=== PATIENT | female | born 1960 | race Caucasian/White ===

== ENCOUNTER 2017-06-16 19:46 | Emergency (ER) | payer BC ==
--- NOTE | 2017-06-16 21:41 | Emergency Department Record ---
History of Present Illness - General Chief Complaint: General Stated Complaint: CONSTIPATION Time Seen by Provider: 06/16/17 21:25 Source: Patient Mode of Arrival: Ambulatory Limitations: No limitations - History of Present Illness Initial comments: pt has been having problems with constipation since may 30 when she stopped met formin. she has infrequent hard stools. she has taken miralax the last 2days and has tried a fleets enema with small results. she states she has a skin tag and an external hernia. -: Week(s) Consistency: Intermittent - Related Data Home Medications Medication Instructions Recorded Confirmed Last Taken Glipizide [Glipizide ER] 2.5 mg PO DAILY 06/16/17 06/16/17 Unknown Previous Rx's Medication Instructions Recorded Docusate Sodium [Colace] 100 mg PO QHS #20 cap 06/16/17 Allergies Allergy/AdvReac Type Severity Reaction Status Date / Time metoclopramide HCl Allergy Intermediate ALTERED Verified 06/16/17 21:10 [From [facility]] MENTAL STATUS Travel Screening - Travel/Exposure Within Last 30 Days Have you traveled within the last 30 days?: No - Travel Symptoms Symptom Screening: None Review of Systems Reviewed: No additional complaints except as noted below Constitutional: Reports: As per HPI. Denies: Chills, Fever, Malaise, Night sweats, Weakness, Weight change Eyes: Reports: As per HPI. Denies: Eye discharge, Eye pain, Photophobia, Vision change ENT: Reports: As per HPI. Denies: Congestion, Dental pain, Ear pain, Epistaxis , Hearing loss, Throat pain Respiratory: Reports: As per HPI. Denies: Cough, Dyspnea, Hemoptysis, Stridor, Wheezes Cardiovascular: Reports: As per HPI. Denies: Arrhythmia, Chest pain, Dyspnea on exertion, Edema, Murmurs, Orthopnea, Palpitations, Paroxysmal nocturnal dyspnea, Rheumatic Fever, Syncope Endocrine: Reports: As per HPI. Denies: Fatigue, Heat or cold intolerance, Polydipsia, Polyuria Gastrointestinal: Reports: As per HPI, Constipation. Denies: Abdominal pain, Diarrhea, Hematemesis, Hematochezia, Melena, Nausea, Vomiting Genitourinary: Reports: As per HPI. Denies: Abnormal menses, Discharge, Dyspareunia, Dysuria, Frequency, Hematuria, Incontinence, Retention, Urgency Musculoskeletal: Reports: As per HPI. Denies: Arthralgia, Back pain, Gout, Joint swelling, Myalgia, Neck pain Skin: Reports: As per HPI. Denies: Bruising, Change in color, Change in hair/ nails, Lesions, Pruritus, Rash Neurological: Reports: As per HPI. Denies: Abnormal gait, Confusion, Headache, Numbness, Paresthesias, Seizure, Tingling, Tremors, Vertigo, Weakness Psychiatric: Reports: As per HPI. Denies: Anxiety, Auditory hallucinations, Depression, Homicidal thoughts, Suicidal thoughts, Visual hallucinations Hematological/Lymphatic: Reports: As per HPI. Denies: Anemia, Blood Clots, Easy bleeding, Easy bruising, Swollen glands Past Medical History - SOCIAL HISTORY Smoking Status: Never smoker - RESPIRATORY Hx Respiratory Disorders: Yes Hx Sleep Apnea: Yes Hx of CPAP: Yes - CARDIOVASCULAR Hx Cardio Disorders: Yes Hx Edema: Yes (OCCASIONALLY) Hx Hypertension: Yes (CONTROLLED) - NEURO Hx Neuro Disorders: No - GI Hx GI Disorders: Yes Hx Diverticulitis: Yes (X2 IN LAST 6 MONTHS) - Hx Genitourinary Disorders: Yes Hx UTI: Yes (RECENTLY FINISHED ABX 09/23) - ENDOCRINE Hx Endocrine Disorders: Yes Comment:: OCC CHECKS BLOOD SUGARS RECENT HGBA1C 6.9 - MUSCULOSKELETAL Hx Musculoskeletal Disorders: Yes - PSYCH Hx Psych Problems: Yes Hx Depression: Yes (CONTROLLED WITH MEDS) - HEMATOLOGY/ONCOLOGY Hx Hematology/Oncology Disorders: No Family Medical History Any Significant Family History?: Yes Family Hx Comment (NOT TO BE USED IN PLACE OF ITEMS BELOW): brother-crohns Hx Heart Disease: Father Physical Exam - General General Appearance: Alert, Oriented x3, Cooperative, Mild distress - Head Head exam: Normal inspection - Eye Eye exam: Normal appearance, PERRL, EOMI Pupils: Normal accommodation - ENT ENT exam: Normal exam, Mucous membranes moist, Normal external ear exam, Normal orophraynx, TM's normal bilaterally Ear exam: Normal external inspection. negative: External canal tenderness Nasal Exam: Normal inspection. negative: Discharge, Sinus tenderness Mouth exam: Normal external inspection, Tongue normal Teeth exam: Normal inspection. negative: Dental caries Throat exam: Normal inspection. negative: Tonsillar erythema, Tonsillar exudate - Neck Neck exam: Normal inspection, Full ROM. negative: Tenderness - Respiratory Respiratory exam: Normal lung sounds bilaterally. negative: Respiratory distress - Cardiovascular Cardiovascular Exam: Regular rate, Normal rhythm, Normal heart sounds - GI/Abdominal GI/Abdominal exam: Soft, Normal bowel sounds. negative: Tenderness - Rectal Rectal exam: Heme (-) stool, Hemorrhoids, Other (skin tag, soft stool in vault) - exam: Deferred - Extremities Extremities exam: Normal inspection, Full ROM, Normal capillary refill. negative: Tenderness - Back Back exam: Reports: Normal inspection, Full ROM. Denies: Muscle spasm, Rash noted, Tenderness - Neurological Neurological exam: Alert, Normal gait, Oriented X3, Reflexes normal - Psychiatric Psychiatric exam: Normal affect, Normal mood - Skin Skin exam: Dry, Intact, Normal color, Warm Course Vital Signs 06/16/17 06/16/17 21:06 21:12 Temperature 98.3 F 98.3 F Pulse Rate [ 75 Pulse Ox Probe] Respiratory 16 Rate Blood Pressure 149/78 [Left Arm] Pulse Ox 96 - Reevaluation(s) Reevaluation #1: 06/16/17 22:59 pt feels much better, had several bms Disposition Disposition: Discharge Clinical Impression: Constipation by delayed colonic transit Disposition: Home, Self-Care Condition: (1) Good Instructions: Constipation (ED) Additional Instructions: follow up with family doctor. return sooner if worse. Prescriptions: Docusate Sodium [Colace] 100 mg PO QHS #20 cap Forms: Patient Portal Access Quality - Quality Measures Quality Measures: N/A - Blood Pressure Screening Does Patient Have Any of the Following: No Blood Pressure Classification: Hypertensive Reading Systolic Measurement: 149 Diastolic Measurement: 78 Screening for High Blood Pressure: < First Hypertensive BP, F/U Documented > [ [id number]] First Hypertensive Follow-up Interventions: Follow-up with rescreen GT 1 day and LT 4 weeks.
== END 2017-06-16 23:17 | disposition home or self-care (01) ==
LOC: ER 19:46
DX: K59.01 Slow transit constipation (principal)
CPT/HCPCS: 99282

== ENCOUNTER 2018-09-19 07:04 | Day surgery (SDC) | payer BC ==
[~2018-09-19 07:04] MED LIST: CEFAZOLIN 2 Gram 2 GM/50 ML BAG IVPB ONE; FAMOTIDINE 20MG TABLET PO ONE; MECLIZINE 25 MG TABLET PO ONE
[2018-09-19] MEDS ORDERED: DEXAMETHASONE 4 MG/ML 1ML VIAL IVP ONE (07:05)
[2018-09-19] MEDS ORDERED: LIDOCAINE 2% MDV (20MG/ML) 20ML VIAL IV ONE (07:05)
[2018-09-19] MEDS ORDERED: MIDAZOLAM HCL 2MG/2ML VIAL IV ONE (07:05)
[2018-09-19] MEDS ORDERED: ROPIVACAINE HCL (NAROPIN) /PF 5MG/ML 20ML VIAL IV ONE (07:05)
[2018-09-19] MEDS ORDERED: TRANEXAMIC ACID 1,000 MG/10 ML ML IV ONE (07:05)
[2018-09-19] MEDS ORDERED: PROPOFOL 10 MG/ML VIAL IV ONE (07:05)
[2018-09-19] MEDS ORDERED: RINGERS SOLUTION,LACTATED 1,000 ML IV ONE ×2 (07:30→09:12)
[2018-09-19] MEDS ORDERED: NALOXONE 0.4 MG/1 ML VIAL IVP PRN (10:45)
[2018-09-19] MEDS ORDERED: HYDROCODONE/APAP 5/325MG TABLET PO PRN (10:45)
[2018-09-19] MEDS ORDERED: RINGERS SOLUTION,LACTATED 1,000 ML IV SCH (10:45)
[2018-09-19] MEDS ORDERED: ACETAMINOPHEN 325 MG TAB PO PRN (10:45)
[2018-09-19] MEDS ORDERED: ZOLPIDEM TARTRATE 5 MG TABLET PO PRN (10:45)
[2018-09-19] MEDS ORDERED: OXYCODONE HCL/APAP 5MG/325MG TABLET PO PRN ×2 (10:45)
[2018-09-19] MEDS ORDERED: MAGNESIUM HYDROXIDE 30 ML UDC PO PRN (10:45)
[2018-09-19] MEDS ORDERED: AL HYDROX/MAG HYDROX 30ML UD PO PRN (10:45)
[2018-09-19] MEDS ORDERED: TRAMADOL HCL 50 MG TABLET PO PRN (10:45)
[2018-09-19] MEDS ORDERED: DIPHENHYDRAMINE HCL 25 MG CAPSULE PO PRN (10:45)
[2018-09-19] MEDS ORDERED: SENNOSIDES/DOCUSATE SODIUM UD CAPSULE PO PRN (10:45)
[2018-09-19] MEDS: HYDROCODONE/APAP 5/325MG TABLET PO PRN ×2 (12:57→20:17)
[2018-09-19] MEDS ORDERED: TRANEXAMIC ACID 1,000 MG in 0.9 % SODIUM CHLORIDE 100ML 100 ML IVPB ONE (13:00)
[2018-09-19] MEDS: HYDROMORPHONE HCL 2 MG/ML VIAL IV PRN ×2 (13:42→15:59)
[2018-09-19] MEDS: ONDANSETRON HCL IV 4 MG/2 ML VIAL IVP PRN (13:45)
[2018-09-19] MEDS ORDERED: CEFAZOLIN 2 Gram 2 GM/50 ML BAG IVPB SCH (16:30)
[2018-09-19] MEDS: CEFAZOLIN 1G VIAL IVP SCH (16:56)
--- NOTE | 2018-09-19 17:16 | Rehab Evaluation ---
Patient Information - Patient Information Diagnosis: R knee OA Ordered Treatment: PT Evaluate and Treat Status: Initial Evaluation Surgery: Yes (R TKA) Date of Surgery: 09/19/18 Past Medical/Surgical Hx: PAST MEDICAL/SURGICAL HISTORY Past Surgical History CHOLECYSTECTOMY HYSTERECTOMY GONZALO. CTR X2 BACK SX FUSION C-SCOPE; R shoulder-rotator cuff repair ; R knee scope ; Lap band 7 yrs ago then removed. PMH - Respiratory Hx Respiratory Disorders Yes Hx Sleep Apnea Yes Hx of CPAP Yes PMH - Cardiovascular Hx Cardiovascular Disorders Yes Hx Edema Yes: OCCASIONALLY Hx Hypertension Yes: CONTROLLED Exercise Tolerance Fair Comment: HYPERLIPIDEMIA. PMH - Neuro Hx Neurological Disorders No PMH - GI Hx Gastrointestinal Disorders Yes Hx Diverticulitis Yes: X2 IN LAST 6 MONTHS Hx Gastroesophageal Reflux Yes Hx Irritable Bowel Yes PMH - Hx Genitourinary Disorders Yes Hx Age of Menopause 44 Hx Urinary Tract Infection Yes: RECENTLY FINISHED ABX 09/23 Comment: S/P HYST PMH - Endocrine Hx Endocrine Disorders Yes Hx Diabetes Yes: DX'D 12 YRS AGO Hx of NIDDM Yes Comment: OCC CHECKS BLOOD SUGARS RECENT HGBA1C 6.9 PMH - Musculoskeletal Hx Musculoskeletal Disorders Yes Hx Arthritis Yes Hx Back Injury No Comment: RIGHT ROTATOR CUFF TEAR PMH - Psych Hx Psychiatric Problems Yes Hx Depression Yes: CONTROLLED WITH MEDS Hx Suicide Attempt No Major Depressive Episode No PMH - Hematology/Oncology Hx Hematology/Oncology No Disorders Premorbid Status: Detail (The patient was independent with all mobility prior to surgery.) Social History: Detail (The patient lives with spouse in a 2 story house but will be staying on main floor. The patient has a main floor enterance without steps. The bathroom has a tub/shower combination wan a standard height toilet, no grab bars are present. The patient has a walker with wheels and a standard cane.) Precautions: [place], Fall, Other (WBAT on the R LE.) - Time With Patient Total Time Spent With Patient (Min): 30 Treatment Procedures: Detail (Initial Evaluation) Subjective Information - Subjective Information Per Patient (The patient had complaints of lower back pain, initially level 8 to 9, minimal complaints of R knee pain. Patient also had complaints of lightheadedness when standing.) Objective Data - Mental Status Patient Orientation: Oriented x3 - Visual Perception Appears within normal limits for therapeutic activities - ROM Not within normal limits (The patient's R knee pain was limited as to be expected following surgery. All other LE AROM was WFL.) - Strength/Tone Not within normal limits (The patient's R LE strength was not tested s/p surgery , however was functional ie: patient was able to lift LE out of bed. The patient 's L LE strength was WFL.) - Bed Mobility Independent (The patient was independent with supine to and from sit and scooting up in bed.) - Transfers Independent (The patient was independent with sit to stand with verbal cues to push up from surface.) - Balance Balance Sitting: Good Balance Standing: Good - Gait Detail (The patient became lightheaded with standing and requested to sit back down. The patient stood x 1 min WBAT on the R LE. The patient did not ambulate.) Therapy Assessment - Therapy Assessment Detail (The patient was independent with bed mobility and transfers. The patient was unable to ambulate due to lightheadedness. Feel the patient will progress well once symptoms of lightheadedness decrease.) Problem List - Problem List Physical Therapy Problem List: Detail (1) Decreased R knee AROM and strength as to be expected s/p surgery) Goals - Goals Physical Therapy Goals: 1) The patient will ambulate with appropriate assistive device community distances WBAT on the R LE. 2) The patient will ambulate on stairs using proper technique with supervision for safety. 3) The patient will be independent with TKA HEP.
[2018-09-19] MEDS ORDERED: SIMVASTATIN 20 MG TABLET PO SCH (22:00)
[2018-09-19] MEDS: ASPIRIN 325 MG TAB ENTERIC-COATED PO SCH (23:14)
[2018-09-19] MEDS: GLIPIZIDE 5 MG TABLET PO SCH (23:14)
[2018-09-19] MEDS: PANTOPRAZOLE SODIUM 40 MG TABLET PO SCH (23:16)
[2018-09-20] MEDS: CEFAZOLIN 1G VIAL IVP SCH ×2 (00:56→10:37)
[2018-09-20] MEDS: ONDANSETRON HCL IV 4 MG/2 ML VIAL IVP PRN (01:50)
--- NOTE | 2018-09-20 08:41 | Operative Note ---
DATE OF SURGERY: 09/19/2018 SURGEON: Kofi Cruz DO PREOPERATIVE DIAGNOSIS: Osteoarthritis of the right knee. POSTOPERATIVE DIAGNOSIS: Osteoarthritis of the right knee. OPERATION: Right total knee arthroplasty. DESCRIPTION OF PROCEDURE: This 58-year-old female was taken to the operating room and placed in the supine position on the operating room table after spinal anesthesia had been induced. The right lower extremity was elevated. It was prepped with Hibiclens and draped in the usual sterile fashion. It was exsanguinated and the tourniquet inflated to 300 mmHg. All scrub personnel wore personal isolation suits. An anterior longitudinal midline incision was made followed by a medial parapatellar arthrotomy incision. An intracondylar drill hole was made for the intramedullary alignment annabel, and a 5-degree valgus 9 mm cut was made in the distal femur. The wafers of bone were removed. Sizing jig was affixed and size 65 was seen to be the appropriate size. The 4-in-1 cutting block was then pinned in 3 degrees of external rotation. The appropriate cuts were made. We then directed our attention to the proximal tibia, and an extramedullary alignment guide was used to cut the proximal tibia referencing a 10 mm cut off the lateral tibial plateau. After the appropriate alignment had been assured, a 3-degree posterior slope cut was made on the proximal tibia, and the wafer of bone was removed. Remnants of the menisci were removed. Osteophytes were removed from the posterior aspect of the joint. The tibia was sized to a 71 and the stem punch was used. The patella was cut and restored to anatomic height with a 34 x 7.8 mm patella. Trial components were inserted and a 10 mm bearing was seen to be the appropriate size giving us full extension and excellent stability throughout the full range of motion. All trial components were removed and the wound copiously irrigated with pulse lavage, lactated Ringer's solution. All bony surfaces were dried, and all components cemented and excess cement removed after the insertion of each component. Initially the tibial baseplate was cemented followed by the insertion of the tibial bearing, femoral component, and finally the patella. Once the cement had hardened, the knee was taken through range of motion with excellent stability being noted. A drain was placed through a separate stab incision, and the wound copiously irrigated again with lactated Ringer's solution and suctioned. The arthrotomy incision closed with a #2 Vicryl. The subcutaneous tissue was closed with 0 Vicryl and the skin was stapled. Sterile dressings applied. The patient was taken to the recovery room in satisfactory condition. GROSS PATHOLOGY: This patient had severe full-thickness articular cartilage loss noted in the medial compartment and more mild degenerative changes laterally, grade 3 changes noted at the patellofemoral joint. Final components inserted were a [employer] size 65 cruciate retaining femur, a 71 tibial baseplate, a 10 mm anterior stabilized E1 bearing, and a 34 x 7.8 mm patella was used. The patient did have considerable amount of oozing during the operative procedure. We attempted to control this using electrocautery but this was slightly more than usual. CC: Vivi MAR
[2018-09-20] MEDS ORDERED: LISINOPRIL 20 MG TABLET PO SCH (10:00)
[2018-09-20] MEDS ORDERED: FLUOXETINE HCL 20 MG CAPSULE PO SCH (10:00)
[2018-09-20] MEDS ORDERED: BUPROPION HCL 150 MG TAB.SR.12H PO SCH (10:00)
[2018-09-20] MEDS: PANTOPRAZOLE SODIUM 40 MG TABLET PO SCH (10:32)
[2018-09-20] MEDS: GLIPIZIDE 5 MG TABLET PO SCH (10:33)
[2018-09-20] MEDS: ASPIRIN 325 MG TAB ENTERIC-COATED PO SCH (10:33)
[2018-09-20] MEDS: TRAMADOL HCL 50 MG TABLET PO PRN ×2 (10:55→11:28)
--- NOTE | 2018-09-20 11:30 | Rehab Evaluation ---
Patient Information - Patient Information Diagnosis: R knee OA Ordered Treatment: OT Evaluate and Treat Status: Initial Evaluation Surgery: Yes (R TKA) Date of Surgery: 09/19/18 Past Medical/Surgical Hx: PAST MEDICAL/SURGICAL HISTORY Past Surgical History CHOLECYSTECTOMY HYSTERECTOMY GONZALO. CTR X2 BACK SX FUSION C-SCOPE; R shoulder-rotator cuff repair ; R knee scope ; Lap band 7 yrs ago then removed. PMH - Respiratory Hx Respiratory Disorders Yes Hx Sleep Apnea Yes Hx of CPAP Yes PMH - Cardiovascular Hx Cardiovascular Disorders Yes Hx Edema Yes: OCCASIONALLY Hx Hypertension Yes: CONTROLLED Exercise Tolerance Fair Comment: HYPERLIPIDEMIA. PMH - Neuro Hx Neurological Disorders No PMH - GI Hx Gastrointestinal Disorders Yes Hx Diverticulitis Yes: X2 IN LAST 6 MONTHS Hx Gastroesophageal Reflux Yes Hx Irritable Bowel Yes PMH - Hx Genitourinary Disorders Yes Hx Age of Menopause 44 Hx Urinary Tract Infection Yes: RECENTLY FINISHED ABX 09/23 Comment: S/P HYST PMH - Endocrine Hx Endocrine Disorders Yes Hx Diabetes Yes: DX'D 12 YRS AGO Hx of NIDDM Yes Comment: OCC CHECKS BLOOD SUGARS RECENT HGBA1C 6.9 PMH - Musculoskeletal Hx Musculoskeletal Disorders Yes Hx Arthritis Yes Hx Back Injury No Comment: RIGHT ROTATOR CUFF TEAR PMH - Psych Hx Psychiatric Problems Yes Hx Depression Yes: CONTROLLED WITH MEDS Hx Suicide Attempt No Major Depressive Episode No PMH - Hematology/Oncology Hx Hematology/Oncology No Disorders Premorbid Status: Detail (The patient was independent with all ADLs and mobility prior to surgery.) Social History: Detail (The Pt lives with her spouse in a bilevel home with no steps inside or outside to negotiate upon DC. In the bathroom there is a tub/ shower without grab bars or shower chair. There is a std. toilet without GBs. Spouse assists with all IADLs at baseline. She has a walker and a single-point cane.) Precautions: [place], Fall, Other (WBAT on the R LE.) - Time With Patient Total Time Spent With Patient (Min): 25 (1 eval low) Treatment Procedures: Detail (ot eval: low complexity) Subjective Information - Subjective Information Per Patient (ok to see per SANTINO Dorsey. Pt agreeable to OT eval, spouse present.) Objective Data - Pain Pain Present: Yes - Mental Status Patient Orientation: Oriented x3 - Visual Perception Appears within normal limits for therapeutic activities - ROM Within normal limits (Pt reports previous R rotator cuff injury, however ROM WFL.) - Strength/Tone Within normal limits - Coordination Appears within normal limits for therapeutic activities - Bed Mobility Independent (supine >< EOB) - Transfers Independent (sit >< stand from low surfaces) - Balance Balance Sitting: Good Balance Standing: Good - Sensation Intact - Gait Detail (Functional ambulation within bedroom with FWW and supervision. Slight lightheadedness verbalized, but Pt self-aware of safety and feels safe for fxl amb. within room.) - ADL's/IADL's Detail (OT educ. Pt on adaptive tech and Pt demos ability to don/doff LB dress ( pants, socks, shoes) with increased time (MOD I) and mod tech. OT educ. Pt on mod techs. for kitchen and bathroom safety, incl. using shower chair initially upon DC for increased safety.) Therapy Assessment - Therapy Assessment Detail (Pt demos safety and MOD I with LB dressing and verbalizes safe tech for home tasks. Rec. shower chair and installing GB in shower. Rec DC home with spouse upon medical stability.) Problem List - Problem List Physical Therapy Problem List: Detail (1) Decreased R knee AROM and strength as to be expected s/p surgery) Occupational Therapy Problem List: Detail (No further inpatient OT needs identified.) Goals - Goals Physical Therapy Goals: 1) The patient will ambulate with appropriate assistive device community distances WBAT on the R LE. 2) The patient will ambulate on stairs using proper technique with supervision for safety. 3) The patient will be independent with TKA HEP. Occupational Therapy Goals: No further inpatient OT needs identified. DC inpatient OT when medically ready. Prognosis - Prognosis Good Plan - Plan Occupational Therapy Plan: No further inpatient OT needs identified. DC inpatient OT when medically appropriate. Thank you for this referral.
--- NOTE | 2018-09-20 14:41 | Physical Therapy Tx Note ---
Physical Therapy Tx Note - Treatment Note Tolerated: Good Total Time Spent With Patient: 25 Physical Therapy Tx Note: Detail (The patient was in bed when PT arrived and had no complaints of lightheadedness. The patient ambulated with front wheeled walker a distance of 75 feet x 1 WBAT on the R LE independently. The patient completed the following TKA exercises including: Heel slides supine, SLR with use of strap, gluteal sets, quad sets, hamstring sets and ankle pumps. Will see patient this pm for gait on stairs.) Physical Therapy Problem List: Detail (1) Decreased R knee AROM and strength as to be expected s/p surgery) Physical Therapy Goals: 1) The patient will ambulate with appropriate assistive device community distances WBAT on the R LE. 2) The patient will ambulate on stairs using proper technique with supervision for safety. 3) The patient will be independent with TKA HEP.
--- NOTE | 2018-09-20 14:45 | Physical Therapy Tx Note ---
Physical Therapy Tx Note - Treatment Note Tolerated: Good Total Time Spent With Patient: 15 Physical Therapy Tx Note: Detail (The patient denied complaints of pain or lightheadedness. The patient ambulated to stairway (80 feet x 2) with front wheeled walker independently. The patient ambulated on stairs with use of railing and folded walker with supervision for safety only. The patient has met all inpatient PT goals and is discharged from inpatient PT.) Physical Therapy Problem List: Detail (1) Decreased R knee AROM and strength as to be expected s/p surgery) Physical Therapy Goals: 1) The patient will ambulate with appropriate assistive device community distances WBAT on the R LE. ( Goal Met). 2) The patient will ambulate on stairs using proper technique with supervision for safety. (Goal Met ). 3) The patient will be independent with TKA HEP.(Goal Met). Physical Therapy Plan: The patient has met all PT goals and is discharged from PT.
--- NOTE | 2018-09-21 09:11 | Discharge Summary ---
DATE OF ADMISSION: 09/19/2018 DATE OF DISCHARGE: 09/20/2018 SURGEON: Kofi Cruz D.O. ADMITTING DIAGNOSIS: Osteoarthritis of the right knee. DISCHARGE DIAGNOSIS: Osteoarthritis of the right knee. OPERATIVE PROCEDURE: Right total knee arthroplasty. HISTORY OF PRESENT ILLNESS: This 58-year-old female was admitted to the hospital for elective total knee arthroplasty. The patient progressed satisfactorily with physical therapy. 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 She is doing well now. She feels as though she just had not eaten and had taken some [place]. Currently, she is not complaining of dizziness and she has walked with physical therapy and has cleared PT. She will be discharged today. She was instructed to wear her TREE hose during the day and remove them at night. She will take aspirin 325 mg daily. She was given a prescription for Tylenol 3, #40 1 every 4 hours as necessary for pain and Ultram 1 to 2 q.6 hours #60. She will also take that on a p.r.n. basis. Routine wound care instructions were given. She will follow up in 2 weeks and have outpatient PT. Should she have any problems prior to being seen, she was instructed to call my office. ANNIE
== END 2018-09-20 14:49 | disposition home or self-care (01) ==
LOC: SUR 07:04 → MEDSURG 10:51 → SUR 09-20 14:49
PROVIDERS: ATTEND Orthopaedic Surgery
DX: M17.11 Unilateral primary osteoarthritis, right knee (principal); I10 Essential (primary) hypertension; E78.00 Pure hypercholesterolemia, unspecified; E11.9 Type 2 diabetes mellitus without complications; G47.33 Obstructive sleep apnea (adult) (pediatric)
CPT/HCPCS: 76942; 94760; 97110; 97530; J0690; J2405; J3490; J7120

== ENCOUNTER 2018-09-25 18:27 | Emergency (ER) | payer BC | END 2018-09-25 19:19 | disposition left against medical advice (07) | LOC: ER 18:27 | DX: Z53.20 Procedure and treatment not carried out because of patient's decision for unspecified reasons (principal) ==

== ENCOUNTER 2018-11-15 06:31 | Emergency (ER) | payer BC ==
--- NOTE | 2018-11-15 07:08 | Emergency Department Record ---
History of Present Illness - General Chief complaint: Lower Extremity Pain Stated complaint: RIGHT LEG MUSCEL SPASMS Time Seen by Provider: 11/15/18 06:57 Source: Patient, RN notes reviewed Mode of Arrival: Ambulatory - History of Present Illness Initial comments: patient is having right thigh pain muscle spasm pain on the anterior thigh and some in the lower leg and she had a knee replacement August by Dr. Cruz and unable to sleep for the last 2 days. 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 Moving around is better than when sitting still. Last visit with Dr Cruz October. Last physical therapy this week. She is doing stretches to help the muscle spasms. Onset/Timin -: Week(s) Location: Right History of Same: No Radiation: Distal Severity scale (1-10): 8 Quality: Aching, Other Consistency: Intermittent, Getting worse Improves with: Movement Worsens with: Rest Associated Symptoms: Denies other symptoms - Related Data Home Medications Medication Instructions Recorded Confirmed Last Taken Pravastatin Sodium [Pravachol] 80 mg PO QHS 11/15/18 11/15/18 11/14/18 Tramadol HCl 50 mg PO DAILY 11/15/18 11/15/18 11/14/18 Previous Rx's Medication Instructions Recorded Tizanidine HCl [Zanaflex] 4 mg PO Q8HR PRN #14 tablet 11/15/18 Allergies Allergy/AdvReac Type Severity Reaction Status Date / Time metoclopramide HCl Allergy Intermediate ALTERED Verified 06/16/17 21:10 [From [facility]] MENTAL STATUS Travel Screening - Travel/Exposure Within Last 30 Days Have you traveled within the last 30 days?: No - Travel Symptoms Symptom Screening: None Review of Systems Reviewed: No additional complaints except as noted below Constitutional: Reports: As per HPI. Denies: Chills, Fever, Malaise, Night sweats, Weakness, Weight change Eyes: Reports: As per HPI. Denies: Eye discharge, Eye pain, Photophobia, Vision change ENT: Reports: As per HPI. Denies: Congestion, Dental pain, Ear pain, Epistaxis, Hearing loss, Throat pain Respiratory: Reports: As per HPI. Denies: Cough, Dyspnea, Hemoptysis, Stridor, Wheezes Cardiovascular: Reports: As per HPI. Denies: Arrhythmia, Chest pain, Dyspnea on exertion, Edema, Murmurs, Orthopnea, Palpitations, Paroxysmal nocturnal dyspnea, Rheumatic Fever, Syncope Endocrine: Reports: As per HPI. Denies: Fatigue, Heat or cold intolerance, Polydipsia, Polyuria Gastrointestinal: Reports: As per HPI. Denies: Abdominal pain, Constipation, Diarrhea, Hematemesis, Hematochezia, Melena, Nausea, Vomiting Genitourinary: Reports: As per HPI. Denies: Abnormal menses, Discharge, Dyspareunia, Dysuria, Frequency, Hematuria, Incontinence, Retention, Urgency Musculoskeletal: Reports: As per HPI, Other (thigh pain). Denies: Arthralgia, Back pain, Gout, Joint swelling, Myalgia, Neck pain Skin: Reports: As per HPI. Denies: Bruising, Change in color, Change in hair/nails, Lesions, Pruritus, Rash Neurological: Reports: As per HPI. Denies: Abnormal gait, Confusion, Headache, Numbness, Paresthesias, Seizure, Tingling, Tremors, Vertigo, Weakness Psychiatric: Reports: As per HPI. Denies: Anxiety, Auditory hallucinations, D epression, Homicidal thoughts, Suicidal thoughts, Visual hallucinations Hematological/Lymphatic: Reports: As per HPI. Denies: Anemia, Blood Clots, Easy bleeding, Easy bruising, Swollen glands Past Medical History - SOCIAL HISTORY Smoking Status: Never smoker Alcohol Use: None Drug Use: None Drug Use Detail:: Other - RESPIRATORY Hx Respiratory Disorders: Yes Hx Sleep Apnea: Yes Hx of CPAP: Yes - CARDIOVASCULAR Hx Cardio Disorders: Yes Hx Deep Vein Thrombosis: No Hx Hypertension: Yes Comment:: HYPERLIPIDEMIA. - NEURO Hx Neuro Disorders: No - GI Hx GI Disorders: Yes Hx Diverticulitis: Yes (X2 IN LAST 6 MONTHS) Hx Reflux: Yes - Hx Genitourinary Disorders: Yes Comment:: S/P HYST - ENDOCRINE Hx Endocrine Disorders: Yes Hx Diabetes: Yes (DX'D 12 YRS AGO) - MUSCULOSKELETAL Hx Musculoskeletal Disorders: Yes Hx Arthritis: Yes - PSYCH Hx Psych Problems: Yes Hx Depression: Yes Hx Suicide Attempt: No - HEMATOLOGY/ONCOLOGY Hx Hematology/Oncology Disorders: No Family Medical History Any Significant Family History?: Yes Family Hx Comment (NOT TO BE USED IN PLACE OF ITEMS BELOW): brother-crohns. SON-ARTERIOSCLEROSIS, DVT Hx Heart Disease: Father, Children *Heart Comment: SON-CHF Physical Exam - General General Appearance: Alert, Oriented x3, Cooperative, No acute distress - Head Head exam: Normal inspection - Eye Eye exam: Normal appearance, PERRL Pupils: Normal accommodation - ENT ENT exam: Normal exam, Mucous membranes moist, Normal external ear exam, Normal orophraynx, TM's normal bilaterally Ear exam: Normal external inspection. negative: External canal tenderness Nasal Exam: Normal inspection. negative: Discharge, Sinus tenderness Mouth exam: Normal external inspection, Tongue normal Teeth exam: Normal inspection. negative: Dental caries Throat exam: Normal inspection. negative: Tonsillar erythema, Tonsillar exudate - Neck Neck exam: Normal inspection, Full ROM. negative: Tenderness - Respiratory Respiratory exam: Normal lung sounds bilaterally. negative: Respiratory distress - Cardiovascular Cardiovascular Exam: Regular rate, Normal rhythm, Normal heart sounds - GI/Abdominal GI/Abdominal exam: Soft, Normal bowel sounds. negative: Tenderness - Rectal Rectal exam: Deferred - exam: Deferred - Extremities Extremities exam: Normal inspection, Full ROM, Normal capillary refill, Tenderness (right thigh pain), Other (pulses are good in the feet, no leg edema) - Back Back exam: Reports: Normal inspection, Full ROM. Denies: Muscle spasm, Rash noted, Tenderness - Neurological Neurological exam: Alert, Normal gait, Oriented X3, Reflexes normal - Psychiatric Psychiatric exam: Normal affect, Normal mood - Skin Skin exam: Dry, Intact, Normal color, Warm Course Vital Signs 11/15/18 06:38 Temperature 98.7 F Pulse Rate [ 83 Pulse Ox Probe] Respiratory 20 Rate Blood Pressure 148/83 [Left Arm] Pulse Ox 96 - Reevaluation(s) Reevaluation #1: patient is feeling better 11/15/18 09:25 Medical Decision Making - Data Complexity MDM Data: Labs Ordered and/or Reviewed (crp .83 elvevated slightly ,wbc 9,900), X-Ray Ordered and/or Reviewed (venous dopler negative for DVT with a popliteal cyst right leg, Knee xray unchanged) - Lab Data Result diagrams: 11/15/18 07:19 Disposition Clinical Impression: Muscle spasm Disposition: Home, Self-Care Condition: (1) Good Instructions: Musculoskeletal Pain (ED) Additional Instructions: continue stretching exercises use zanoflex three times a day Prescriptions: Tizanidine HCl [Zanaflex] 4 mg PO Q8HR PRN #14 tablet PRN Reason: Pain - Mild To Moderate (1-7) Forms: Patient Portal Access Time of Disposition: 09:23 Quality - Quality Measures Quality Measures: N/A - Blood Pressure Screening Does Patient Have Any of the Following: No, Active Dx of HTN Blood Pressure Classification: Pre-Hypertensive BP Reading Systolic Measurement: 148 Diastolic Measurement: 83 Screening for High Blood Pressure: Patient Exclusion, Hx of HTN [[id number]]
[2018-11-15 07:25] LABS: ABSOLUTE NEUTROPHIL COUNT 6.07; BASO % 0.5 % (0-6); EOS % 2.7 % (0-6); GRAN % 61.7 % (47-80); HEMATOCRIT 40.9 % (35.0-47.0); HEMOGLOBIN 13.1 gm/dl (11.6-16.0); LYMPH % 25.9 % (16-45); MEAN CELL VOLUME 90.3 fl (81-97); MEAN CORPUSCULAR HEMOGLOBIN 28.9 pg (27-33); MEAN PLATELET VOLUME 8.7 fl (7.4-10.4); MONO % 9.2 % (0-9); PLATELET COUNT 384 K/uL (130-400); RED BLOOD COUNT 4.53 M/uL (3.80-5.40); RED CELL DISTRIBUTION WIDTH 13.9 % (11.5-14.5); WHITE BLOOD COUNT W/O DIFF 9.9 K/uL (4.2-12.2)
--- NOTE | 2018-11-15 19:39 | RADIOLOGY REPORT ---
STUDY: Right knee 4 views. CLINICAL HISTORY: Right knee and thigh pain for a few days. No known injury. Prior knee arthroplasty. TECHNIQUE: Four views of the right knee. COMPARISON: Three views of the right knee dated 10/02/2018. ENCOUNTER: Initial. FINDINGS: There is [id number] osteopenia. Total right knee arthroplasty changes are re-demonstrated with the metallic prosthetic components appearing well seated. No fracture nor dislocation. No gross joint effusion. Mild anterior soft tissue swelling. There has been interval removal of the surgical skin gurdeep. IMPRESSION: 1. Total right knee arthroplasty changes without evidence of complicating fracture, dislocation, nor metallic prosthetic component loosening. 2. Interval removal of the surgical skin gurdeep. MTDD
--- NOTE | 2018-11-16 19:39 | US VENOUS DOPPLER REPORT ---
EXAM: ULTRASOUND VENOUS DOPPLER LOWER EXT RT HISTORY: SEVERE CRAMPING AND SPASM. PAIN. TOTAL KNEE ARTHROPLASTY ON 09/19/2018. TECHNIQUE: Barrow scale, color Doppler, and duplex Doppler evaluation of the deep venous structures of the right lower extremity performed from the level of the external iliac vein through the calf veins. Additional imaging of the external iliac, common femoral, and greater saphenous veins on the left performed. FINDINGS: On the right, the external iliac, common femoral, deep femoral, greater saphenous, all levels of the superficial femoral and popliteal veins are anechoic and completely compressible throughout. Normal venous waveforms are noted at all of these levels. These waveforms are augmentable. The peroneal, posterior tibial, anterior tibial veins are visualized and appear patent with normal augmentable venous waveforms. There is a complex cystic structure in the medial popliteal soft tissues measuring 4.2 x 2.0 x 1.4 cm. This is nonspecific but likely a popliteal cyst. No evidence of deep venous thrombosis within the left external iliac, common femoral, and greater saphenous veins. IMPRESSION: 1. NO EVIDENCE OF DEEP VENOUS THROMBOSIS WITHIN THE RIGHT LOWER EXTREMITY. 2. COMPLEX CYSTIC STRUCTURE WITHIN THE MEDIAL RIGHT POPLITEAL SOFT TISSUES MEASURING 4.2 X 2.0 X 1.4 CM. THIS IS NONSPECIFIC BUT LIKELY A POPLITEAL CYST. JOB NUMBER: [id number] [facility]
== END 2018-11-15 09:46 | disposition home or self-care (01) ==
LOC: ER 06:31
DX: M62.838 Other muscle spasm (principal); M79.651 Pain in right thigh; I10 Essential (primary) hypertension; Z96.651 Presence of right artificial knee joint
CPT/HCPCS: 85025; 86140; 99283; 99284